=== PATIENT | female | born 1955 | race Caucasian/White ===

== ENCOUNTER 2020-04-02 11:02 | Emergency (ER) | payer MEDICARE ==
[~2020-04-02] VITALS: Ht 170.2 cm; Wt 116.2 kg
[~2020-04-02 11:02] MED LIST: ALLO100T30 PO
[2020-04-02 11:04] VITALS: BP 156/90
[2020-04-02] MEDS ORDERED: DULA1.5P SQ (12:06)
[2020-04-02] MEDS ORDERED: HYDROcodone/APAP 5/325 TABLET PO ONE (12:30)
== END 2020-04-02 12:24 | disposition home or self-care (01) ==
LOC: ED 12:20
DX: G89.11 Acute pain due to trauma (principal); M17.5 Other unilateral secondary osteoarthritis of knee; M25.462 Effusion, left knee; M19.90 Unspecified osteoarthritis, unspecified site; X50.0XXA Overexertion from strenuous movement or load, initial encounter; Y93.89 Activity, other specified; Y92.009 Unspecified place in unspecified non-institutional (private) residence as the place of occurrence of the external cause; Y99.8 Other external cause status
CPT/HCPCS: 29505; 99283